=== PATIENT | male | born 1985 | race Caucasian/White ===

== ENCOUNTER 2019-09-06 06:40 | Day surgery (SDC) | payer OTHER ==
[~2019-09-06] VITALS: Ht 185.4 cm; Wt 113.4 kg
--- NOTE | 2019-09-06 08:18 | NUR ---
09/06/19 0818 [place] PT COMPLAINS OF MILD ABDMONINAL DISCOMFORT. ENCOURAGED PT TO PASS GAS.
--- NOTE | 2019-09-08 10:50 | OR ---
[facility] [address] [place], [place] [address] Signed DATE OF OPERATION: 09/06/2019 SURGEON: Sydnie Loredo MD PREOPERATIVE DIAGNOSIS: Recent hematochezia, painless rectal bleeding. POSTOPERATIVE DIAGNOSIS: Internal hemorrhoids. No evidence of other lesion to account for bleeding. PROCEDURE: Total colonoscopy to cecum with biopsies. ANESTHESIA: Intravenous sedation, fentanyl 100 mcg and Versed 5 mg. INDICATION: This 34-year-old white man is a prisoner at [facility] and referred by DOMENICA Yanez of the [facility] for urgent colonoscopy. He was found on September 01, 2019 to have rather significant hematochezia. Stool studies have been obtained, which were normal. He has no diarrhea problem underlying these symptoms. He does have family history of colon cancer in his father, who survived the disease. He is admitted at this time to undergo colonoscopy on an urgent basis to better characterize the problem. He understands the risks of bleeding, infection, and perforation, and wished to proceed. Of note, a full history and physical was done prior to the evaluation today as he had not been seen by me prior to this morning, so as to accommodate emergency of evaluation in the COVID-19 era. The special note is COVID-19 screening test was negative and stool studies were negative as well. FINDINGS: The prep was adequate. Complete colonoscopy was undertaken to the cecum. There was no sign of inflammatory bowel disease, diverticular formation, colitis or cancer. He did have internal hemorrhoids, which almost certainly were the source of his recent bleeding. He Electronically Signed By: SYDNIE LOREDO MD 09/08/19 1050 PATIENT NAME: ROCIO AGUILA OPERATIVE REPORT DATE OF : 89 REPORT #: [id number] PHYSICIAN: SYDNIE LOREDO MD PCP: SHARON MCCOY NP REPORT IS CONFIDENTIAL AND NOT TO BE RELEASED WITHOUT AUTHORIZATION [facility] [address] [place], [place] [address] Signed had no active bleeding or retained blood at this time. DESCRIPTION OF PROCEDURE: The patient was brought to the endoscopy suite and placed in lateral decubitus position after having been fully evaluated in the Day Surgery area and complete history and physical undertaken there. He was given intravenous sedation with full cardiopulmonary monitoring. Digital rectal examination was found to be normal. An Olympus video colonoscope was passed in the rectum and manipulated throughout the colon ultimately intubating the right colon with visualization of the cecum. There was retained soft spongy stool. No sign of blood or clots in the area. Irrigation was undertaken. Careful withdrawal of scope undertaken showed no sign of abnormality including no sign of diverticular formation, colitis, cancer or other issue. Retroflexed view of the rectum confirmed internal hemorrhoids. There was no sign of bleeding. Careful withdrawal of the scope through the anal canal showed no sign of fissure. Scope was removed and the patient was taken to the recovery room in good condition. CONCLUDING DIAGNOSIS: Hematochezia normal, certainly related to internal hemorrhoids. PLAN: Recommend Metamucil 1 scoop p.o. daily and increase fluids. Avoid excessive straining at stool. If he should have recurrent bleeding, would recommend hemorrhoidal banding in the office setting. Sydnie Loredo MD JM/MODL /[id number] cc: DOMENICA Yanez Copies: Electronically Signed By: SYDNIE LOREDO MD 09/08/19 1050 PATIENT NAME: ROCIO AGUILA OPERATIVE REPORT DATE OF : 89 REPORT #: [id number] PHYSICIAN: SYDNIE LOREDO MD PCP: SHARON MCCOY NP REPORT IS CONFIDENTIAL AND NOT TO BE RELEASED WITHOUT AUTHORIZATION [address] [address] Signed ~ Electronically Signed By: SYDNIE LOREDO MD 09/08/19 1050 PATIENT NAME: ROCIO AGUILA OPERATIVE REPORT DATE OF : 89 REPORT #: [id number] PHYSICIAN: SYDNIE LOREDO MD PCP: SHARON MCCOY NP REPORT IS CONFIDENTIAL AND NOT TO BE RELEASED WITHOUT AUTHORIZATION
--- NOTE | 2019-09-08 10:50 | CONS ---
[facility] [address] [place], [place] [address] Signed DATE OF CONSULTATION: TIME: 7:20 a.m. PROBLEM: Hematochezia. HISTORY OF PRESENT ILLNESS: This 34-year-old white man is a prisoner at [facility] and referred by DOMENICA Yanez of the [facility] for urgent evaluation of significant rectal bleeding. Review of notes available to me show he was documented as having significant hematochezia on September 01, 2019. Evaluation included stool studies, which were negative including no evidence of enteric pathogens. The patient has not had rectal bleeding in the past. He denies any chronic diarrhea problems. He does have family history of colon cancer in his father, who survived the disease with surgery. There were no other family members with colonic problems and no family members with inflammatory bowel disease. PAST MEDICAL HISTORY: Negative for operations or chronic medical conditions. SOCIAL HISTORY: He is from [facility]. He is incarcerated at [facility]. REVIEW OF SYSTEMS: He denies any shortness of breath or chest pain. He has had no hematemesis. No dysphagia. His blood per rectum has been bright and copious. It has abated in the past day or so. He underwent a bowel prep at the [facility] anticipating colonoscopy today. PHYSICAL EXAMINATION: GENERAL: A mobley and muscular white man with multiple tattoos on upper and lower body. He is alert and oriented. Does not look systemically ill. Trachea is midline. He has no thyromegaly or cervical adenopathy. CHEST: Shows normal respiratory excursion. Pulse is regular. ABDOMEN: Nondistended and palpated as normal. He has mild abdominal obesity. EXTREMITIES: Show no clubbing, cyanosis, or edema. He does have tattoos. LABORATORY STUDIES: Recently performed shows a hematocrit of 40, platelets are normal. Stool studies are all negative. COVID-19 test is negative. Electronically Signed By: SYDNIE LOREDO MD 09/08/19 1050 PATIENT NAME: ROCIO AGUILA CONSULTATION DATE OF : 89 REPORT #: [id number] PHYSICIAN: SYDNIE LOREDO MD PCP: SHARON MCCOY NP REPORT IS CONFIDENTIAL AND NOT TO BE RELEASED WITHOUT AUTHORIZATION [facility] [address] [place], [place] [address] Signed ASSESSMENT: The patient has hematochezia of uncertain etiology and family history of colon cancer in his father. I have recommended colonoscopy as has Mr. Mccoy at [facility]. The risks of bleeding, infection, perforation, and so forth were reviewed with him. He understands and wished to proceed. He has had a bowel prep as directed prior to his evaluation today. Colonoscopy with IV sedation will be undertaken to determine the source of his recent hematochezia. MD MATILDE Peter/MODL /[id number] cc: [facility] Copies: ~ Electronically Signed By: SYDNIE LOREDO MD 09/08/19 1050 PATIENT NAME: ROCIO AGUILA CONSULTATION DATE OF : 89 REPORT #: [id number] PHYSICIAN: SYDNIE LOREDO MD PCP: SHARON MCCOY NP REPORT IS CONFIDENTIAL AND NOT TO BE RELEASED WITHOUT AUTHORIZATION
--- NOTE | 2019-09-09 15:33 | PATH ---
[facility] [address], [place] [address] Signed SPECIMEN(S): A CECUM SPECIMEN(S): B LEFT SPECIMEN(S): C RECTUM SPECIMEN SOURCE: A. CECUM B. LEFT C. RECTUM CLINICAL HISTORY: Hematochezia/internal hemorrhoids. MICROSCOPIC DESCRIPTION: Histologic sections of all submitted blocks are examined by light microscopy. These findings, together with the gross examination, support the pathologic diagnosis. FINAL PATHOLOGIC DIAGNOSIS: A. Cecum, biopsy: - Benign colonic mucosa, negative for specific diagnostic abnormality. B. Left colon, biopsy: - Benign colonic mucosa, negative for specific diagnostic abnormality. C. Rectum, biopsy: - Polypoid fragments of benign colonic mucosa with focal slight hyperplastic features. JVR:cml:C2NR GROSS DESCRIPTION: Three specimens are received in three containers, labeled "Rocio Recinos." A. The specimen, labeled "Jorgereina Rocio Fabricio, #1," and designated on the requisition "cecum biopsy," is received in formalin and consists of two valentine soft tissue fragments that measure 0.2 and 0.4 cm in greatest dimension. The specimen is entirely submitted in cassette (A1). B. The specimen, labeled "Grisel Rocio Preciadoith, #2," and designated on the requisition "left biopsy," is received in formalin and consists of four valentine soft tissue fragments that measure 0.3 to 0.5 cm in greatest dimension. The specimen is entirely submitted in cassette (B1). C. The specimen, labeled "Jorgereina Rocio Fabricio, #3," and designated on the requisition "rectum biopsy," is received in formalin and consists of two valentine soft tissue fragments that measure 0.2 and PATIENT NAME: ROCIO RECINOS PATHOLOGY DATE OF : 89 REPORT #: [id number] PHYSICIAN: CHERELLE PATHOLOGY PCP: SHARON MCCOY NP REPORT IS CONFIDENTIAL AND NOT TO BE RELEASED WITHOUT AUTHORIZATION [facility] [address] [place], [place] [address] Signed 0.3 cm in greatest dimension. The specimen is entirely submitted in cassette (C1). FB (under the direct supervision of a pathologist) The Gross Description was prepared using a voice recognition system. The report was reviewed for accuracy; however, sound-alike word errors, addition and/or deletions may occur. If there is any question about this report, please contact Client Services. PERFORMING LABORATORY: The technical component was performed by [employer], [address] [place] [address] (Field Identification Specialist: Rabia Murguia MD; CLIA# [id number]). Professional interpretation was performed [place] [address] (Field Identification Specialist: Trent Morgan M.D.). Diagnostician: Trent Morgan MD Pathologist Electronically Signed 09/09/2019 Copies: ~ PATIENT NAME: ROCIO RECINOS PATHOLOGY DATE OF : 89 REPORT #: [id number] PHYSICIAN: CHERELLE KENYON PCP: SHARON MCCOY NP REPORT IS CONFIDENTIAL AND NOT TO BE RELEASED WITHOUT AUTHORIZATION
== END 2019-09-06 08:50 | disposition home or self-care (01) ==
LOC: DS 06:40 → OPS 06:40 → DS 06:45 → OPS 06:45
PROVIDERS: Surgery
PROC: 0DBP8ZX Excision of Rectum, Via Natural or Artificial Opening Endoscopic, Diagnostic (ICD-10-PCS; 2019-09-06)
PROC: 0DBG8ZX Excision of Left Large Intestine, Via Natural or Artificial Opening Endoscopic, Diagnostic (ICD-10-PCS; 2019-09-06)
PROC: 0DBH8ZX Excision of Cecum, Via Natural or Artificial Opening Endoscopic, Diagnostic (ICD-10-PCS; principal; 2019-09-06 06:45)
DX: K62.1 Rectal polyp (principal); K64.8 Other hemorrhoids
CPT/HCPCS: 99153; G0500; J2250; J3010; J7121

== ENCOUNTER 2021-01-19 13:05 | Emergency (ER) | payer OTHER ==
[~2021-01-19] VITALS: Ht 185.4 cm; Wt 113.4 kg
[2021-01-19] MEDS ORDERED: ESCITALOPRAM OX10 MG PO (13:46)
[2021-01-19] MEDS ORDERED: ALL DAY ALLERGY10 M3 PO (13:47)
[2021-01-19] MEDS ORDERED: GUANFACINE HCL E2 MG PO (13:47)
[2021-01-19] MEDS ORDERED: HYDROCODON-ACE1 EA10 PO (13:48)
[2021-01-19] MEDS ORDERED: BACLOFEN10 MG PO (13:49)
== END 2021-01-19 15:01 | disposition home or self-care (01) ==
LOC: ED 13:05
DX: G54.4 Lumbosacral root disorders, not elsewhere classified (principal); Z87.891 Personal history of nicotine dependence; Z79.899 Other long term (current) drug therapy
CPT/HCPCS: 72131; 99283-25

== ENCOUNTER 2021-01-23 14:42 | Emergency (ER) | payer OTHER ==
[~2021-01-23] VITALS: Ht 185.4 cm; Wt 113.4 kg
[~2021-01-23 14:42] MED LIST: ALL DAY ALLERGY10 M3 PO; BACLOFEN10 MG PO; ESCITALOPRAM OX10 MG PO; GUANFACINE HCL E2 MG PO; HYDROCODON-ACE1 EA10 PO
--- OUTSIDE RECORDS SUMMARY | 2021-01-23 14:50 | XMS ---
PreManage Notification: ROCIO AGUILA Security Wind Technician Events No recent Security Events currently on file CRITERIA MET - [facility] - 2 Visits in 30 Days CARE PROVIDERS There are no care providers on record at this time. Shanta has no Care Guidelines for this patient. Yane VIS[facility] (12 MO.) [facility] NOTE: Visits indicate total known visits. ED/C VISIT TRACKING (12 MO.) 01/23/2021 14:43 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
== END 2021-01-23 16:37 | disposition short-term general hospital (02) ==
LOC: ED 14:42
DX: M54.42 Lumbago with sciatica, left side (principal); M21.371 Foot drop, right foot; Z87.891 Personal history of nicotine dependence; Z79.899 Other long term (current) drug therapy
CPT/HCPCS: 99284; C9803; U0003

== ENCOUNTER 2021-01-30 10:52 | Emergency (ER) | payer OTHER ==
[~2021-01-30] VITALS: Ht 185.4 cm; Wt 113.4 kg
--- OUTSIDE RECORDS SUMMARY | 2021-01-30 13:36 | XMS ---
PreManage Notification: ROCIO AGUILA Security Display Decorator Events No recent Security Events currently on file CRITERIA MET - [facility] - 2 Visits in 30 Days CARE PROVIDERS There are no care providers on record at this time. Shanta has no Care Guidelines for this patient. Yane VISIT COUNT (12 MO[address] [facility] 3 [facility] [place] TOTAL 4 NOTE: Visits indicate total known visits. ED/C VISIT TRACKING (12 MO.) 01/30/2021 10:53 [facility] [place] TYPE: Emergency COMPLAINT: - BLOOD IN URINE [facility] DIAGNOSES: - New onset right lower extremity weakness, parasthesia, and foot drop - Pain - Radiculopathy, lumbar region 01/23/2021 14:43 [facility] TYPE: Emergency COMPLAINT: - BACK PAIN/NO INJURY DIAGNOSES: - Other ferry terminal supervisor (current) drug therapy - Lumbago with sciatica, left side - Personal history of nicotine dependence - Foot drop, right foot - LOW BACK PAIN, UNSPECIFIED 01/19/2021 13:06 [facility] TYPE: Emergency COMPLAINT: - LOWER BACK PAIN DIAGNOSES: - Personal history of nicotine dependence - LOW BACK PAIN, UNSPECIFIED - Other ferry terminal supervisor (current) drug therapy - Lumbosacral root disorders, not elsewhere classified INPATIENT VISIT TRACKING (12 MO.) No inpatient visits to display in this time frame [email or web address]
== END 2021-01-30 15:01 | disposition home or self-care (01) ==
LOC: ED 10:52
DX: R31.29 Other microscopic hematuria (principal); Z87.891 Personal history of nicotine dependence; Z79.899 Other long term (current) drug therapy; M54.30 Sciatica, unspecified side
CPT/HCPCS: 74176; 80053; 81001; 85025; 99284-25